=== PATIENT | male | born 1980 | race African-American/Black ===

== ENCOUNTER 2017-04-08 09:20 | Emergency (ER) | payer SELFPAY ==
[~2017-04-08] VITALS: Ht 170.2 cm; Wt 71.5 kg
== END 2017-04-08 10:22 | disposition home or self-care (01) ==
LOC: ED 10:10
DX: M72.2 Plantar fascial fibromatosis (principal); Z59.0 Homelessness
CPT/HCPCS: 99283

== ENCOUNTER 2017-04-08 16:19 | Emergency (ER) | payer MEDICAID ==
[~2017-04-08] VITALS: Ht 170.2 cm; Wt 70.4 kg
[2017-04-08 16:21] VITALS: BP 139/90
== END 2017-04-08 19:14 | disposition home or self-care (01) ==
LOC: ED 16:30
DX: Z72.89 Other problems related to lifestyle (principal); F20.9 Schizophrenia, unspecified
CPT/HCPCS: 99281